=== PATIENT | male | born 1980 | race African-American/Black ===

== ENCOUNTER 2020-10-18 05:22 | Emergency (ER) | payer MEDICAID ==
[~2020-10-18] VITALS: Ht 182.9 cm; Wt 91.0 kg
[2020-10-18 05:45] VITALS: BP 140/101
== END 2020-10-18 07:35 | disposition home or self-care (01) ==
LOC: EDBD 05:22 → ER 05:22 → EDUNIT# 05:22 → ER 07:35
DX: F10.129 Alcohol abuse with intoxication, unspecified (principal); F12.90 Cannabis use, unspecified, uncomplicated; I49.9 Cardiac arrhythmia, unspecified; Y90.9 Presence of alcohol in blood, level not specified
CPT/HCPCS: 93005; 99283